=== PATIENT | female | born 1985 | race Asian ===

== ENCOUNTER 2019-05-20 12:48 | Emergency (ER) | payer OTHER ==
[2019-05-20 12:56] VITALS: BP 120/79; PULSE 73; TEMP 98.8; BMI 23.8
[2019-05-20] MEDS ORDERED: ACETAMINOPHEN 500 MG TABLET (FP) PO ONE (13:24)
--- NOTE | 2019-05-20 13:24 | PDOC ---
History of Present Illness - General Chief Complaint: Pain Stated Complaint: ABD PAIN, DIARRHEA Time Seen by Provider: 05/20/19 13:16 History Source: Patient, Co-worker (Present at bedside) Exam Limitations: No Limitations - History of Present Illness Initial Comments: HPI: 34 y/o female presenting to [facility] complaining of diffuse abdominal cramping with multiple episodes of watery diarrhea since yesterday evening. Endorses subjective chills. Denies bloody diarrhea or vomiting. Able to tolerate PO. Pt works in a senior care with multiple sick contacts. Attempted relief last night with Pepto Bismol. Received Mylanta and Pepcid at work today. No medication provided significant relief. Denies recent antibiotics or international travel. LMP 2 weeks ago; described as normal. Medical Hx: - Denies past medical history. Takes prescription control. Surgical Hx: - Review of Systems: In addition to that documented in the HPI above, the additional ROS was obtained : Constitutional- Endorses chills. Denies fevers ENMT- Denies sore throat CV- Denies chest pain Resp- Denies SOB GI- Per HPI - Denies dysuria, hematuria, or urinary frequency Physical Examination: Vital signs and nursing notes reviewed. Constitutional- Well-developed, well-nourished adult female in no acute distress or obvious discomfort. Found semi-fowlers on hospital bed. Observed ambulating unassisted without obvious discomfort through the department. Answered all questions appropriately and completely. Head- Normocephalic. No obvious external signs of trauma. Eyes- Sclerae white. Neck- Supple, trachea is midline. Cardiovascular / Chest- Regular rate and regular rhythm. No murmur, rubs, clicks , or gallops. Peripheral pulses- radial pulses full. Respiratory- Breathing unlabored. Equal chest rise and fall. Clear to auscultation bilaterally. No stridor, no wheezing, no rhonchi. Gastrointestinal- Pt endorses diffuse discomfort without graimace, rebound, or guarding. Globally, abdomen is soft and non-distended. No hepatosplenemegaly. No pulsatile masses. No overlying skin lesions or obvious signs of trauma. Neuro- Alert and oriented x4. Moving all four extremities spontaneously. Skin- Warm, dry, and intact. Psych- Affect- appropriate. Mood- normal. Speech was non-labored, non- pressured. MDM: 34 y/o female presenting with diffuse abdominal cramps and diarrhea for the past two days. Multiple sick contacts at work. No recent abx usage. Afebrile. Vitals unremarkable for hypotension or tachycardia. Physical exam as described above. No acute abdominal signs. Suspect likely viral enteritis. Low suspicion for colitis, appendicitis, ectopic , or biliary pathology. Will obtain CBC, CMP, and CTAP. Ordered Tylenol and LR IVFB. Reviewed laboratory and radiology reports. Noted small amount of pelvic free fluid. Suspect likely physiologic and unrelated to acute complaint. No clinically significant laboratory derangement noted. Pt reassessed and discharged by ED Attending. Moses Barrera M.D., PGY2 Emergency Medicine Resident Past History - Past Medical History Allergies/Adverse Reactions: Allergies Allergy/AdvReac Type Severity Reaction Status Date / Time bacitracin Allergy Verified 05/20/19 12:50 Home Medications: Ambulatory Orders Control Pills 1 tab PO DAILY 05/20/19 COPD: No - Psycho Social/Smoking Cessation Hx Smoking History: Never smoked Have you smoked in the past 12 months: No Information on smoking cessation initiated: No Hx Alcohol Use: (occasional) *Physical Exam - Vital Signs Last Vital Signs Temp Pulse Resp BP Pulse Ox 98.8 F 73 18 120/79 100 05/20/19 12:48 05/20/19 12:48 05/20/19 12:48 05/20/19 12:48 05/20/19 12:48 ED Treatment Course - LABORATORY CBC & Chemistry Diagram: 05/20/19 12:45 05/20/19 14:45 Discharge - Discharge Information Problems reviewed: Yes Clinical Impression/Diagnosis: Diarrhea Qualifiers: Diarrhea type: unspecified type Qualified Code(s): R19.7 - Diarrhea, unspecified Condition: Improved Disposition: HOME - Follow up/Referral Referrals: Kaden Foley DO [Staff Physician] - - Patient Discharge Instructions Patient Printed Discharge Instructions: DI for Diarrhea and Traveler's Diarrhea -- Adult Additional Instructions: Activity as tolerated. Stay hydrated. Blood tests today showed no acute abnormalities, and a CT of the abdomen and pelvis also showed no acute abnormalities. Your symptoms are likely due to a viral infection causing diarrhea. Tylenol 1000 mg every 8 hours and/or ibuprofen 600 mg every 8 hours as needed for pain. As discussed, you can take Immodium over the counter if symptoms persist beyond 48-72 hours. Continue any medications as previously prescribed by your physician. You should follow up with your primary doctor and a GI specialist (consider calling Dr. Prakash) as soon as possible regarding today's emergency department visit. Return to the emergency department for any new or concerning symptoms, particularly persistent or worsening pain, bloody diarrhea or severe diarrhea/ dehydration, fevers or chills. - Post Discharge Activity
[2019-05-20] MEDS ORDERED: ACETAMINOPHEN 325 MG TABLET (FP) ONE (13:32)
[2019-05-20] MEDS ORDERED: LACTATED RINGERS SOLUTION 1000 ML INFUS.BAG IV ONE (14:35)
[2019-05-20 14:55] LABS: BASO % 0.9 % (0-2.0); EOS % 0.1 % (0-4.5); HEMATOCRIT 37.8 % (32.4-45.2); HEMOGLOBIN 12.5 GM/dl (10.7-15.3); LYMPH % 12.2 % (8-40); MCH 31.4 pg (25.7-33.7); MCHC 33.1 g/dl (32.0-36.0); MEAN CELL VOLUME 94.9 fl (80-96); MEAN PLT VOLUME 7.9 fl (7.5-11.1); MONO % 7.5 % (3.8-10.2); NEUT % 79.3 % (42.8-82.8); PLATELET COUNT 208 K/MM3 (134-434); RBC 3.98 M/mm3 (3.60-5.2); RDW 11.6 % (11.6-15.6); WHITE BLOOD COUNT 5.1 K/mm3 (4.0-10.8)
--- NOTE | 2019-05-20 15:00 | PDOC ---
Attending Attestation - Resident Resident Name: Moses Barrera - ED Attending Attestation I have performed the following: I have examined & evaluated the patient, The case was reviewed & discussed with the resident, I agree w/resident's findings & plan - HPI HPI: 05/20/19 14:56 Healthy 34-year-old female with no significant past medical history presents with abdominal cramping and nonbloody diarrhea since early this morning. Patient awoke with several episodes of nonbloody loose stool, intermittent abdominal cramping mostly in the periumbilical region, some chills but no measured fever. No urinary complaints, no nausea or vomiting, tolerated breakfast this morning. 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 Never had endoscopy or colonoscopy. No diet changes. - Physicial Exam PE: 05/20/19 14:58 Vitals as noted and within normal limits Urine negative Well-appearing seated comfortably in stretcher, no jaundice or pallor or dry mucosa Heart is regular, lungs are clear Abdomen is soft/nondistended. There is discomfort to palpation in the left lower quadrant with some rebound to that area, no focal guarding. No CVA tenderness. No palpable hernias or lymphadenopathy. - Medical Decision Making 05/20/19 14:59 Healthy 34-year-old female presents with diarrhea and abdominal cramping, some localizing findings to the left lower quadrant. On further questioning, patient has had brief bouts of left lower quadrant pain in the past which have resolved spontaneously, has never seen GI and does not have a personal or family history of colitis or diverticulitis. Nontoxic-appearing with normal vital signs here. Check CT of the abdomen and pelvis given localized exam and nonspecific history of left lower quadrant pain Check CBC and chemistry IV fluids Reassess and disposition accordingly 05/20/19 15:35 no leukocytosis, mild hypo-Na/K with diarrhea. normal CTAP. pt remains HD stable and tolerating PO. d/c with viral AGE as likely diagnosis, understands return criteria. Discharge - Discharge Information Problems reviewed: Yes Clinical Impression/Diagnosis: Diarrhea Qualifiers: Diarrhea type: unspecified type Qualified Code(s): R19.7 - Diarrhea, unspecified Condition: Improved Disposition: HOME - Follow up/Referral Referrals: DiGiorno,Kaden, DO [Staff Physician] - - Patient Discharge Instructions Patient Printed Discharge Instructions: DI for Diarrhea and Traveler's Diarrhea -- Adult Additional Instructions: Activity as tolerated. Stay hydrated. Blood tests today showed no acute abnormalities, and a CT of the abdomen and pelvis also showed no acute abnormalities. Your symptoms are likely due to a viral infection causing diarrhea. Tylenol 1000 mg every 8 hours and/or ibuprofen 600 mg every 8 hours as needed for pain. As discussed, you can take Immodium over the counter if symptoms persist beyond 48-72 hours. Continue any medications as previously prescribed by your physician. You should follow up with your primary doctor and a GI specialist (consider calling Dr. Prakash) as soon as possible regarding today's emergency department visit. Return to the emergency department for any new or concerning symptoms, particularly persistent or worsening pain, bloody diarrhea or severe diarrhea/ dehydration, fevers or chills. - Post Discharge Activity
[2019-05-20 15:13] LABS: ALBUMIN 3.8 g/dl (3.4-5.0); CALCIUM 8.2 mg/dl (8.5-10); CREATININE 0.7 mg/dl (0.55-1.3); POTASSIUM 3.3 mmol/L (3.5-5.1); TOT PROT 7.5 g/dl (6.4-8.2)
== END 2019-05-20 16:10 | disposition home or self-care (01) ==
LOC: FER 12:48
PROC: 3E0F7GC Introduction of Other Therapeutic Substance into Respiratory Tract, Via Natural or Artificial Opening (ICD-10-PCS; principal; 2019-05-20)
DX: R19.7 Diarrhea, unspecified (principal); Z88.8 Allergy status to other drugs, medicaments and biological substances
CPT/HCPCS: 36415; 74177-TC; 80053; 84703; 85025; 99283-25; Q9967